=== PATIENT | male | born 1965 ===

== ENCOUNTER 2024-04-26 11:30 | Emergency (ER) | payer OTHER ==
[2024-04-26] MEDS: Lidocaine 1% 10 ML MDV INJECT ONE (12:58)
[2024-04-26] MEDS: Diphtheria,Pertussis(Acell),Tetanus Vaccine 0.5 ML Syringe IM ONE (13:50)
== END 2024-04-26 14:05 | disposition home or self-care (01) ==
LOC: JP.ED 11:30
DX: S01.81XA Laceration without foreign body of other part of head, initial encounter (principal); Z23 Encounter for immunization; Z87.891 Personal history of nicotine dependence; W22.8XXA Striking against or struck by other objects, initial encounter; Y93.89 Activity, other specified
CPT/HCPCS: 12013; 90471; 90715; 99282; 99283; J2003